=== PATIENT | female | born 1995 | race Caucasian/White ===

== ENCOUNTER 2017-09-02 20:37 | Emergency (ER) | payer MEDICAID, OTHER ==
[~2017-09-02] VITALS: Ht 160 cm; Wt 101.2 kg
[2017-09-02] MEDS ORDERED: DEXAMETHASONE 4 MG/ML, 1ML PO ONE (21:00)
[2017-09-02] MEDS ORDERED: IBUPROFEN 200 MG TABLET PO ONE (21:00)
[2017-09-02 21:12] LABS: BASOPHILS # (AUTO) 0.01 x10^3/uL (0-0.1); BASOPHILS % (AUTO) 0 % (0-1); EOSINOPHILS # (AUTO) 0.01 x10^3/uL (0-0.4); EOSINOPHILS % (AUTO) 0 % (1-7); LYMPHOCYTES % (AUTO) 18 % (22-44); MD NO; MEAN CORPUSCULAR HEMOGLOBIN 29.4 pg (27.0-34.8); MEAN CORPUSCULAR VOLUME 88.8 fL (80-100); MEAN PLATELET VOLUME 9.4 fL (7.4-10.4); MONOCYTES # (AUTO) 0.42 x10^3/uL (0.2-0.8); MONOCYTES % (AUTO) 5 % (2-9); NEUTROPHILS # (AUTO) 7.22 x10^3/uL (1.8-6.8); NEUTROPHILS % (AUTO) 77 % (42-75); PLATELET COUNT 212 x10^3/uL (130-400); RED BLOOD COUNT 4.78 x10^6/uL (3.82-5.3); RED CELL DISTRIBUTION WIDTH 13.4 % (9.6-15.2)
[2017-09-02 21:22] LABS: ALBUMIN 3.4 g/dL (3.4-5.0); ANION GAP 7 mmol/L (5-15); CALCIUM 9.1 mg/dL (8.5-10.1); CHLORIDE 102 mmol/L (98-107); CREATININE 0.66 mg/dL (0.55-1.02)
[2017-09-02] MEDS ORDERED: IBUPROFEN 200 MG TABLET ONE (21:28)
[2017-09-02] MEDS ORDERED: DEXAMETHASONE 4 MG TABLET ONE (21:28)
[2017-09-02] MEDS ORDERED: IBUP200C5 PO (21:30)
[2017-09-02] MEDS ORDERED: ACET325T14 PO (21:30)
[2017-09-02] MEDS ORDERED: AMOX200S2 PO (21:31)
[2017-09-02 22:13] VITALS: BP 137/88
== END 2017-09-02 23:13 | disposition home or self-care (01) ==
LOC: ED 21:28
DX: J02.8 Acute pharyngitis due to other specified organisms (principal); G43.909 Migraine, unspecified, not intractable, without status migrainosus
CPT/HCPCS: 36415; 80048; 82040; 85025; 86308; 87081; 87880; 99284; J1100

== ENCOUNTER 2018-09-16 21:12 | Emergency (ER) | payer SELFPAY ==
[~2018-09-16] VITALS: Ht 157.5 cm; Wt 98.5 kg
[~2018-09-16 21:12] MED LIST: ACET325T14 PO; AMOX200S2 PO; IBUP-1623 PO
[2018-09-16] MEDS ORDERED: LORazepam 1MG TABLET PO ONE (22:30)
[2018-09-16] MEDS ORDERED: LORazepam 1MG TABLET ONE (22:36)
[2018-09-16 23:47] VITALS: BP 162/88
== END 2018-09-17 00:03 | disposition home or self-care (01) ==
LOC: ED 09-17
DX: J06.9 Acute upper respiratory infection, unspecified (principal); R07.89 Other chest pain; F41.1 Generalized anxiety disorder; F17.200 Nicotine dependence, unspecified, uncomplicated
CPT/HCPCS: 71046; 93005; 99283

== ENCOUNTER 2018-09-23 14:34 | Emergency (ER) | payer SELFPAY ==
[~2018-09-23] VITALS: Ht 157.5 cm; Wt 97.4 kg
[2018-09-23 14:54] VITALS: BP 137/90
[2018-09-23] MEDS ORDERED: DEXAMETHASONE 4 MG TABLET ONE (15:18)
[2018-09-23] MEDS ORDERED: DEXAMETHASONE 4 MG TABLET PO ONE (15:30)
== END 2018-09-23 15:47 | disposition home or self-care (01) ==
LOC: ED 15:32
DX: J06.9 Acute upper respiratory infection, unspecified (principal)
CPT/HCPCS: 87880; 99283

== ENCOUNTER 2019-08-09 02:44 | Emergency (ER) | payer MEDICAID ==
[~2019-08-09] VITALS: Ht 157.5 cm; Wt 101.1 kg
[2019-08-09] MEDS ORDERED: CEFTRIAXONE 250 MG IM ONE (03:30)
[2019-08-09] MEDS ORDERED: AZITHROMYCIN 500 MG TABLET PO ONE (03:30)
--- NOTE | 2019-08-09 03:42 | NUR ---
PA AT BEDSIDE FOR EXAM
[2019-08-09 03:45] LABS: CLUE CELLS NONE SEEN (NONE SEEN); WET PREP WBCS MODERATE (FEW)
[2019-08-09] MEDS ORDERED: CEFTRIAXONE 250 MG ONE (03:49)
[2019-08-09] MEDS ORDERED: AZITHROMYCIN 250 MG TABLET ONE (03:49)
[2019-08-09 04:21] LABS: HCG UR SG 1.028 (1.003-1.030)
[2019-08-09 04:22] LABS: CULTURE INDICATED? YES; MICROSCOPIC INDICATED
[2019-08-09 04:24] VITALS: BP 126/78
== END 2019-08-09 04:26 | disposition home or self-care (01) ==
LOC: ED 03:25
DX: A59.09 Other urogenital trichomoniasis (principal)
CPT/HCPCS: 81001; 81025; 87086; 87210; 87491; 87591; 87808; 96372; 99283; J0696

== ENCOUNTER 2019-08-16 22:40 | Emergency (ER) | payer MEDICAID ==
[~2019-08-16] VITALS: Ht 157.5 cm; Wt 100.2 kg
[2019-08-16 22:44] VITALS: BP 128/81
--- NOTE | 2019-08-16 22:56 | NUR ---
THIS IS A 24 YO FEMALE COMING IN FOR [facility] YESTERDAY. PATIENT STATES "I SLIPPED ON SOME LIQUID ON THE GROUND AND FELL ON MY ELBOW". NOTED SWELLING ON RIGHT ELBOW, CSM IN TACT. PATIENT C/O 10 PAIN AT THIS TIME, WAS MEDICATING AT HOME WITH ALTERNATING IBUPROFEN AND TYLENOL WITH NO RELIEF. DENIES LOC, DID NOT HIT HEAD, DENIES DIZZINESS OR LIGHTHEADED. NO OTHER COMPLAINTS AT THIS TIME, CALL LIGHT IN REACH, DENIES NEEDS AT THIS TIME.
--- NOTE | 2019-08-17 00:13 | NUR ---
Patient/Caregiver given discharge instructions and they have confirmed that they understand the instructions. Patient ambulatory with steady gait.
== END 2019-08-17 00:14 | disposition home or self-care (01) ==
LOC: ED 23:02
DX: S59.901A Unspecified injury of right elbow, initial encounter (principal); Z72.89 Other problems related to lifestyle; W01.0XXA Fall on same level from slipping, tripping and stumbling without subsequent striking against object, initial encounter; Y93.89 Activity, other specified; Y92.098 Other place in other non-institutional residence as the place of occurrence of the external cause; Y99.8 Other external cause status
CPT/HCPCS: 99283

== ENCOUNTER 2020-01-19 14:18 | Emergency (ER) | payer MEDICAID, OTHER ==
[~2020-01-19] VITALS: Ht 157.5 cm; Wt 103.9 kg
[2020-01-19] MEDS ORDERED: HYDROcodone/APAP 7.5-325MG/15ML UDC ONE (14:56)
[2020-01-19] MEDS ORDERED: HYDROcodone/APAP 7.5-325MG/15ML UDC PO ONE (15:00)
[2020-01-19 15:02] VITALS: BP 124/72
--- NOTE | 2020-01-19 15:02 | NUR ---
PT UPRIGHT ON GURNEY WATCHING TV & TEXTING, C/O THROAT PAIN BUT RESPONDS APPROP TO STAFF, COMFORT MEASURES PROVIDED, CALL LIGHT WITHIN REACH.
--- NOTE | 2020-01-19 15:58 | NUR ---
PT REMAINS UPRIGHT ON GURNEY WITH EYES CLOSED & TEXTING AT TIMES, RESPONDS APPROP TO STAFF, NO RESP DISTRESS, NO NEEDS AT THIS TIME, CALL LIGHT WITHIN REACH.
--- NOTE | 2020-01-19 16:13 | NUR ---
Patient given discharge instructions and Rx, they have confirmed that they understand the instructions. Patient ambulatory with steady gait.
== END 2020-01-19 16:14 | disposition home or self-care (01) ==
LOC: ED 16:00
DX: J02.8 Acute pharyngitis due to other specified organisms (principal); Z20.828 Contact with and (suspected) exposure to other viral communicable diseases; B34.9 Viral infection, unspecified
CPT/HCPCS: 71045; 87081; 87880; 99284; U0001

== ENCOUNTER 2021-02-14 17:15 | Emergency (ER) | payer MEDICAID ==
--- NOTE | 2021-02-14 17:22 | NUR ---
SUPERVISOR FUR DRESSING: EKG DONE IN TRIAGE.
--- NOTE | 2021-02-14 18:00 | NUR ---
THIS IS A 25 YO F W/ C/O DIZZINESS AND HIGH BP X2-3 DAYS. PT REPORTS ONLY MEDICAL HX PCOS. PT RESTING ON EyeLock W/ CALL LIGHT IN REACH AND SIDE RAILS UPX2. RESP EVEN AND UNLABORED, EULALIA.
--- NOTE | 2021-02-14 18:28 | NUR ---
PT AMBULATED W/ A STEADY GAIT TO BR TO ATTEMPT UA.
[2021-02-14 18:31] LABS: BASOPHILS % (AUTO) 1 % (0-1); EOSINOPHILS % (AUTO) 1 % (1-7); LYMPHOCYTES % (AUTO) 22 % (22-44); MEAN CORPUSCULAR HEMOGLOBIN 30.2 pg (27.0-34.8); MEAN CORPUSCULAR HGB CONC 33.4 g/dL (32.4-35.8); MEAN PLATELET VOLUME 9.2 fL (7.4-10.4); MONOCYTES % (AUTO) 5 % (2-9); NEUTROPHILS % (AUTO) 72 % (42-75); PLATELET COUNT 236 x10^3/uL (130-400); RED BLOOD COUNT 4.62 x10^6/uL (3.82-5.3)
--- NOTE | 2021-02-14 18:36 | NUR ---
PT RETURNED TO ROOM W/O INCIDENT. URINE COLLECTED AND SENT TO LAB. EULALIA BERMUDEZ.
[2021-02-14 18:42] LABS: ALBUMIN 3.5 g/dL (3.4-5.0); ANION GAP 5 mmol/L (5-15); CALCIUM 9.3 mg/dL (8.5-10.1); CHLORIDE 105 mmol/L (98-107); CREATININE 0.57 mg/dL (0.55-1.02)
--- NOTE | 2021-02-14 18:45 | NUR ---
REPORT RECEIVED FROM COMPA GARCIA, PT CARE TRANSFERRED AT THIS TIME. NAD, APPEARS COMFORTABLE, DENIES ADDITIONAL QUESTIONS OR NEEDS AT THIS TIME. WCTM.
[2021-02-14 19:09] LABS: MICROSCOPIC INDICATED
--- NOTE | 2021-02-14 19:48 | NUR ---
PT NAD, GIVEN WATER FOR COMFORT, Patient is resting comfortably in bed. Bed in lowest, rails engaged, call light on lap. WCTM.
--- NOTE | 2021-02-14 19:50 | NUR ---
CHART UP FOR RECHECK AT THIS TIME
[2021-02-14 19:59] VITALS: BP 139/89
--- NOTE | 2021-02-14 20:02 | NUR ---
Patient given discharge instructions and they have confirmed that they understand the instructions. Patient ambulatory with steady gait. NAD, all questions answered appropriately, denies additional needs at this time. No personal belongings left in room after discharge.
== END 2021-02-14 20:31 | disposition home or self-care (01) ==
LOC: ED 17:45
DX: R42 Dizziness and giddiness (principal); R53.1 Weakness; R11.0 Nausea; R94.31 Abnormal electrocardiogram [ECG] [EKG]
CPT/HCPCS: 36415; 80048; 81001; 82040; 84703; 85025; 87086; 93005; 99284

== ENCOUNTER 2021-05-09 14:36 | Emergency (ER) | payer MEDICAID ==
[~2021-05-09] VITALS: Ht 157.5 cm; Wt 94.8 kg
[2021-05-09 16:27] LABS: BASOPHILS % (AUTO) 0 % (0-1); EOSINOPHILS % (AUTO) 2 % (1-7); LYMPHOCYTES % (AUTO) 30 % (22-44); MEAN CORPUSCULAR HEMOGLOBIN 30.3 pg (27.0-34.8); MEAN CORPUSCULAR HGB CONC 33.7 g/dL (32.4-35.8); MEAN PLATELET VOLUME 9.4 fL (7.4-10.4); MONOCYTES % (AUTO) 5 % (2-9); NEUTROPHILS % (AUTO) 64 % (42-75); PLATELET COUNT 229 x10^3/uL (130-400); RED BLOOD COUNT 4.42 x10^6/uL (3.82-5.3); RED CELL DISTRIBUTION WIDTH 13.2 % (9.6-15.2)
[2021-05-09 16:37] LABS: ALBUMIN 3.6 g/dL (3.4-5.0); ANION GAP 6 mmol/L (5-15); CALCIUM 8.8 mg/dL (8.5-10.1); CHLORIDE 104 mmol/L (98-107)
[2021-05-09 16:43] LABS: ALANINE AMINOTRANSFERASE 51 U/L (12-78); ALKALINE PHOSPHATASE 58 U/L (45-117); BILIRUBIN,TOTAL 0.5 mg/dL (0.2-1.0); CREATININE 0.54 mg/dL (0.55-1.02); TOTAL PROTEIN 7.9 g/dL (6.4-8.2)
--- NOTE | 2021-05-09 17:48 | NUR ---
VSS. AMBULATORY BACK OUT TO LOBBY. UA COLLECTED & SENT & ORDERED.
[2021-05-09 18:19] LABS: MICROSCOPIC NOT IND
--- NOTE | 2021-05-09 19:24 | NUR ---
pt to room from lobby
--- NOTE | 2021-05-09 20:28 | NUR ---
VIC Landis in room to discuss POC with pt. pt a&o, resps even and unlabored, tammi santana.
[2021-05-09 20:42] VITALS: BP 128/76
== END 2021-05-09 20:45 | disposition home or self-care (01) ==
LOC: ED 14:41
DX: K80.20 Calculus of gallbladder without cholecystitis without obstruction (principal)
CPT/HCPCS: 36415; 76700; 80053; 81003; 83690; 84703; 85025; 99284

== ENCOUNTER 2021-05-16 05:30 | Observation (INO) | payer MEDICAID ==
[~2021-05-16] VITALS: Ht 157.5 cm; Wt 102.0 kg
[2021-05-17 06:46] VITALS: BP 118/81
== END 2021-05-17 14:59 | disposition home or self-care (01) ==
LOC: ED 06:18 → INTOOBSV 08:23 → EDIP 08:23 → SUATTDRO 08:31 → 4NW 09:40
PROVIDERS: ADMIT Hospitalist; ATTEND Hospitalist
DX: K80.00 Calculus of gallbladder with acute cholecystitis without obstruction (principal); Z20.822 Contact with and (suspected) exposure to COVID-19; E28.2 Polycystic ovarian syndrome; E66.9 Obesity, unspecified; F41.1 Generalized anxiety disorder; Z79.899 Other long term (current) drug therapy; Z90.49 Acquired absence of other specified parts of digestive tract